=== PATIENT | male | born 1950 | race Caucasian/White ===

== ENCOUNTER → 2016-07-14 | Outpatient (CLI) | payer OTHER ==
[~2016-07-14] MED LIST: ATOR10TA82 PO; IBUP-1050 PO
[2016-07-14 12:53] LABS: BASO % 0.5 %; BASO ABS # 0.03 K/uL (0-0.2); COMPLETE YES; EOS % 4.7 %; HEMATOCRIT 44.7 % (42-52); IG% 0.2 %; LYMPH % 28.1 %; LYMPH ABS # 1.56 K/uL (1.2-3.4); MEAN CORPUSCULAR HEMOGLOBIN 30.1 pg (25-34); MEAN CORPUSCULAR HGB CONC 34.2 g/dl (32-36); MEAN PLATELET VOLUME 9.7 fL (7.4-10.4); MONO % 8.5 %; PLATELET COUNT 174 K/uL (130-400); RED BLOOD COUNT 5.08 M/uL (4.7-6.1); WHITE BLOOD COUNT 5.56 K/uL (4.8-10.8)
[2016-07-14 13:08] LABS: URINE APPEARANCE CLEAR (CLEAR); URINE BILIRUBIN NEG (NEG); URINE COLOR YELLOW; URINE NITRITE NEG (NEG); URINE SPECIFIC GRAVITY 1.021 (1.000-1.030); UROBILINOGEN NEG (NEG); ZZUR CULT IF INDIC CLEAN CATCH NO
[2016-07-14 13:10] LABS: MANUAL MICROSCOPIC REQUIRED? YES; REVIEW REQ? NO
[2016-07-14 13:46] LABS: URINE BACTERIA NEG (NEG); URINE RBC 0-4 /hpf (0-4); URINE WBC 0 /hpf (0-5)
[2016-07-14 13:48] LABS: ALT/SGPT 32 U/L (12-78); BLOOD UREA NITROGEN 18 mg/dl (7-18); BUN/CREATININE RATIO 21.2 (10-20); CALCIUM 8.8 mg/dl (8.5-10.1); CARBON DIOXIDE 27 mmol/L (21-32); CHLORIDE 107 mmol/L (98-107); CREATININE 0.83 mg/dl (0.60-1.40); GLUCOSE 107 mg/dl (70-99); POTASSIUM 4.2 mmol/L (3.5-5.1); SODIUM 141 mmol/L (136-145)
[2016-07-14 14:01] LABS: ALB/GLOB RATIO 1.2 (0.9-2); ALKALINE PHOSPHATASE 60 U/L (45-117); AST/SGOT 29 U/L (15-37)
== END | disposition home or self-care (01) ==
LOC: C.LABBFT 10:10
PROVIDERS: ATTEND Internal Medicine
DX: R10.30 Lower abdominal pain, unspecified (principal); Z12.5 Encounter for screening for malignant neoplasm of prostate

== ENCOUNTER → 2016-07-17 | Outpatient (CLI) | payer OTHER ==
[2016-07-17 13:13] LABS: ESTIMATED AVERAGE GLUCOSE 114 mg/dl; HA1C FLAG Normal (Normal)
== END | disposition home or self-care (01) ==
LOC: C.LABBFT 08:00
PROVIDERS: ATTEND Internal Medicine
DX: R73.01 Impaired fasting glucose (principal)

== ENCOUNTER → 2016-07-21 | Outpatient (CLI) | payer OTHER ==
[~2016-07-21] MED LIST changes: +OPTIRAY 320 IV PRN
--- NOTE | 2016-07-21 16:10 | DIAGNOSTIC IMAGING REPORT ---
CT OF THE ABDOMEN AND PELVIS WITH CONTRAST CLINICAL HISTORY: Left groin pain post hernia repair. COMPARISON STUDY: Abdominal ultrasound June 19, [address] of the abdomen and pelvis July 18 2015. TECHNIQUE: Following IV administration of 118 mL of Optiray-320, axial images of the abdomen and pelvis were obtained from the lung bases to the proximal femurs. Images were reviewed in the axial, sagittal, and coronal planes. IV contrast was administered without complication. Oral contrast was administered. CT DOSE: 335.00 mGy.cm FINDINGS: A 3 mm left lower lobe nodule shown image [id number] is unchanged since prior exam. This is likely benign. No pneumatosis, free air or portal venous gas is present. A 2.2 cm segment 7 hepatic lesion is unchanged since prior exam. This has probable nodular peripheral enhancement and suggests a hemangioma. An 8 mm hypodense segment 8/4 A lesion is too small to characterize but is likely benign. There is no evidence for a bowel obstruction and the spleen, adrenal glands, kidneys and pancreas are normal. There is no hydronephrosis. There is a lipoma within the third portion of the duodenum. No abdominal or pelvic lymphadenopathy is present. There is no ascites. There is no evidence for a recurrent left inguinal hernia. No mass or fluid collection is shown within the left groin. No suspicious osseous lesion is identified. Mild mesenteric infiltration is unchanged. IMPRESSION: 1. No CT findings to explain left groin pain. No evidence of recurrent left inguinal hernia. 2. No acute process within the abdomen or pelvis. 3. No change in a suspected 2.2 cm right hepatic lobe hemangioma. Electronically signed by: Chaz Mejias M.D. 07/21/2016 4:07 PM Dictated Date/Time: 07/21/2016 3:45 PM
== END | disposition home or self-care (01) ==
LOC: C.CTS 13:09
PROVIDERS: ATTEND Internal Medicine
DX: R10.30 Lower abdominal pain, unspecified (principal)

== ENCOUNTER → 2017-07-15 | Outpatient (CLI) | payer OTHER ==
[~2017-07-15] MED LIST changes: -OPTIRAY 320 IV PRN
[2017-07-15 12:44] LABS: BASO % 0.3 %; BASO ABS # 0.02 K/uL (0-0.2); EOS % 3.9 %; EOS ABS # 0.26 K/uL (0-0.5); HEMOGLOBIN 15.7 g/dL (14.0-18.0); IG# 0.01 K/uL (0.00-0.02); LYMPH % 21.4 %; LYMPH ABS # 1.43 K/uL (1.2-3.4); MEAN CELL VOLUME 89.5 fL (80-100); MEAN CORPUSCULAR HEMOGLOBIN 30.5 pg (25-34); MEAN CORPUSCULAR HGB CONC 34.1 g/dl (32-36); MEAN PLATELET VOLUME 9.8 fL (7.4-10.4); MONO % 7.6 %; MONO ABS # 0.51 K/uL (0.11-0.59); NEUT % 66.7 %; NEUT ABS # 4.46 K/uL (1.4-6.5); PLATELET COUNT 171 K/uL (130-400); RED CELL DISTRIBUTION WIDTH CV 13.5 % (11.5-14.5); RED CELL DISTRIBUTION WIDTH SD 44.5 fL (36.4-46.3); WHITE BLOOD COUNT 6.69 K/uL (4.8-10.8)
[2017-07-15 13:09] LABS: HEMOGLOBIN A1C 5.6 % (4.5-5.6)
[2017-07-15 13:16] LABS: ALT/SGPT 31 U/L (12-78); AST/SGOT 34 U/L (15-37); BLOOD UREA NITROGEN 17 mg/dl (7-18); CALCIUM 8.7 mg/dl (8.5-10.1); CARBON DIOXIDE 27 mmol/L (21-32); CREATININE 0.89 mg/dl (0.60-1.40); GLUCOSE 107 mg/dl (70-99); SODIUM 137 mmol/L (136-145)
[2017-07-15 13:22] LABS: ALKALINE PHOSPHATASE 59 U/L (45-117); CHOLESTEROL 131 mg/dl (0-200); LDL CHOLESTEROL CALCULATED 84 mg/dl; TOTAL PROTEIN 7.4 gm/dl (6.4-8.2)
== END | disposition home or self-care (01) ==
LOC: C.LABBFT 08:19
PROVIDERS: ATTEND Internal Medicine
DX: R73.01 Impaired fasting glucose (principal); Z12.5 Encounter for screening for malignant neoplasm of prostate; E78.00 Pure hypercholesterolemia, unspecified

== ENCOUNTER → 2017-11-15 | Outpatient (CLI) | payer OTHER ==
--- NOTE | 2017-11-15 13:37 | DIAGNOSTIC IMAGING REPORT ---
ABDOMEN FOR HERNIA CLINICAL HISTORY: INGUINAL HERNIA hernia TECHNIQUE: Ultrasound pre and post Valsalva COMPARISON STUDY: 06/19/2015 FINDINGS: A right inguinal hernia is confirmed. This is reducible. No definite bowel containment. IMPRESSION: Reducible right inguinal hernia. The above report was generated using voice recognition software. It may contain grammatical, syntax or spelling errors. Electronically signed by: Ramón Santos M.D. 11/15/2017 1:36 PM Dictated Date/Time: 11/15/2017 1:35 PM
== END | disposition home or self-care (01) ==
LOC: C.ULTR 12:26
PROVIDERS: ATTEND Physician Assistant Medical
DX: K40.90 Unilateral inguinal hernia, without obstruction or gangrene, not specified as recurrent (principal)

== ENCOUNTER → 2017-11-29 | Day surgery (SDC) | payer OTHER, MEDICARE ==
[2017-11-22 15:01] VITALS: BMI 24.0
--- NOTE | 2017-11-24 08:26 | PAT Medication Instructions ---
Service Date Nov 24, 2017. Current Home Medication List Atorvastatin (Lipitor), 1 TAB PO HS Ibuprofen (Advil), 400 MG PO BID PRN for PRN Medication Instructions For Your Scheduled Surgery -Instructions per surgeon: Ibuprofen (Advil), 400 MG PO BID PRN for PRN - Take the following medications as scheduled the night before surgery: Atorvastatin (Lipitor), 1 TAB PO HS If you have any questions please call us at [phone] or [phone] or [phone]
[2017-11-24 08:38] VITALS: BMI 24.0
[2017-11-24 10:03] LABS: BASO % 0.4 %; BASO ABS # 0.02 K/uL (0-0.2); EOS % 3.7 %; EOS ABS # 0.19 K/uL (0-0.5); HEMATOCRIT 46.5 % (42-52); HEMOGLOBIN 15.6 g/dL (14.0-18.0); IG# 0.01 K/uL (0.00-0.02); LYMPH % 29.1 %; LYMPH ABS # 1.51 K/uL (1.2-3.4); MEAN CELL VOLUME 90.5 fL (80-100); MEAN CORPUSCULAR HEMOGLOBIN 30.4 pg (25-34); MEAN CORPUSCULAR HGB CONC 33.5 g/dl (32-36); MEAN PLATELET VOLUME 9.6 fL (7.4-10.4); MONO ABS # 0.52 K/uL (0.11-0.59); NEUT % 56.6 %; NEUT ABS # 2.94 K/uL (1.4-6.5); PLATELET COUNT 178 K/uL (130-400); RED CELL DISTRIBUTION WIDTH CV 13.6 % (11.5-14.5); RED CELL DISTRIBUTION WIDTH SD 45.1 fL (36.4-46.3); WHITE BLOOD COUNT 5.19 K/uL (4.8-10.8)
[2017-11-24 10:16] LABS: CALCIUM 9.2 mg/dl (8.5-10.1); CREATININE 0.84 mg/dl (0.60-1.40); POTASSIUM 4.7 mmol/L (3.5-5.1)
[~2017-11-29] VITALS: Ht 172.7 cm; Wt 73.4 kg
[~2017-11-29] MED LIST changes: +ATROPINE SULFATE 0.1 MG/ML 5ML SYR IV PRN; +BUPIVACAINE 0.5 % 5 MG/1 ML PF 10ML VIAL ONE; +CEFAZOLIN 2000MG IV PUSH 15 ML IV SCH; +CEFAZOLIN SOD 1 GM VIAL ONE; +CEPH500C2 PO; +DEXAMETHASONE SOD INJ 4 MG/ML VIAL ONE; +EpHEDrine SULFATE 50MG/5ML SYR ONE; +EpHEDrine SULFATE INJ 50 MG/ML AMP IV PRN; +FENTANYL CITRATE INJ 50 MCG/1 ML 2 ML VIAL ONE; +FLUMAZENIL 0.1 MG/1 ML 10 ML VIAL IV PRN; +GLYCOPYRROLATE INJ 0.2 MG/ML VIAL ONE; +HYDR-5688 PO; +HYDROCODONE/ACETAMIN 5/325MG TAB PO PRN; +HYDROmorphone INJ 0.5 MG/0.5 ML SYR ONE; +HYDROmorphone INJ 1 MG/ML SYR IV PRN; +HydrALAZINE HCL 20 MG/ML VIAL ONE; +LABETALOL HCL IV 5 MG/ML 20ML IV PRN; +LACTATED RINGER'S 1000ML 1,000 ML IV SCH; +LARYING-O-JET KIT (LTA) ONE; +LIDOCAINE HCL 2% 2 ML VIAL (20MG/ML) ONE; +MIDAZOLAM HCL 1 MG/ML 2ML VIAL ONE; +NALOXONE HCL 0.4 MG/1 ML VIAL/CARP IV PRN; +NEOSTIGMINE METHYLSULFATE 5 MG/5 ML SYR ONE; +ONDANSETRON INJ 2 MG/ML 2 ML VIAL IV PRN; +ONDANSETRON INJ 2 MG/ML 2 ML VIAL ONE; +PROMETHAZINE HCL INJ 12.5 MG in SODIUM CHLORIDE 0.9% 50ML 50 ML IV PRN; +PROPOFOL IV EMULSION 10 MG/ML 20 ML VIAL ONE; +ROCURONIUM BROMIDE 10 MG/ML 5 ML VIAL ONE
[2017-11-29 05:52] VITALS: BP 145/72; PULSE 63; TEMP 37; O2SAT 97; Ht 172.7 cm; Wt 73.4 kg
--- NOTE | 2017-11-29 06:51 | History & Physical Bridge Note ---
H&P Re-Evaluation Bridge Note: I have examined the patient, reviewed the History & Physical and in the interval since the performance of the History & Physical I have noted the following changes of clinical significance: No changes noted
--- NOTE | 2017-11-29 07:04 | Discharge Instructions ---
Discharge Instructions Date of Service Nov 29, 2017. Visit Reason for Visit: Right Inguinal Hernia Discharge Discharge Diagnosis / Problem: Rt inguinal hernia Discharge Goals Goal(s): Decrease discomfort, Improve function, Improve disease control Activity Recommendations Activity Limitations: as noted below Lifting Limitations: no more than 25 pounds Exercise/Sports Limitations: until after follow-up appointment May Resume Sexual Activity: when tolerated Shower/Bathe: tomorrow Driving or Machine Use: resume 3 days after discharge Anesthesia . Post Anesthesia Instructions: If you have had General Anesthesia or IV Sedation: * Do not drive today. * Resume driving when surgeon permits. * Do not make important decisions or sign legal documents today. * Call surgeon for: 1. Temperature elevations greater than 101 degrees F. 2. Uncontrollable pain. 3. Excessive bleeding. 4. Persistent nausea and vomiting. 5. Medication intolerance (nausea, vomiting or rash). * For nausea and vomiting use only clear liquids such as: tea, soda, bouillon until nausea subsides, then gradually increase diet as tolerated. * If you have any concerns or questions, call your surgeon's office. If physician is unavailable and it is an emergency, call 911 or go to the nearest emergency room. . Instructions / Follow-Up Instructions / Follow-Up SPECIAL CARE INSTRUCTIONS: * Cover incisions and change daily for comfort/drainage. may leave uncovered with dermabond * May use ibuprofen for pain as tolerated. * Expect some swelling and bruising. Call your doctor if: * Temperature above 101 degrees * Pain not relieved by pain medicine ordered * There is increased drainage or redness from any incision * You have any unanswered questions or concerns [phone]. FOLLOW UP VISIT: If not already scheduled, please call the office for a follow-up visit. for 2 weeks- check up, no sutures to remove OFFICE PHONE NUMBER: Dr. Mooney Office Diet Recommendations Recommended Home Diet: resume previous diet Pending Studies Studies pending at discharge: no Medical Emergencies . Who to Call and When: Medical Emergencies: If at any time you feel your situation is an emergency, please call 911 immediately. . Non-Emergent Contact Non-Emergency issues call your: Primary Care Provider, Surgeon . . "Provider Documentation" section prepared by Leander Mooney. .
--- NOTE | 2017-11-29 08:05 | [facility] Operative Report ---
Operative Report Operative Date Nov 29, 2017. Pre-Operative Diagnosis Right Inguinal Hernia Post-Operative Diagnosis Same as preop, umbilical hernia Procedure(s) Performed Right Laparoscopic Inguinal Hernia Repair with Mesh open umbilical hernia repair Surgeon Dr. Mooney Garment Tag Stringer Surgeon(s) Omar Olson PA-C Estimated Blood Loss 10 ml Findings moderate indirect sac, moderate lipoma, also direct lipoma umbilical hernia Specimens None per Surgeon Anesthesia Type General Complication(s) none Disposition Recovery Room / PACU I attest to the content of the Intraoperative Record and any orders documented therein. Any exceptions are noted below.
--- NOTE | 2017-11-29 08:27 | OPERATIVE REPORT ---
DATE OF OPERATION: 11/29/2017 NAME OF OPERATION: Open umbilical hernia repair with laparoscopic right inguinal hernia repair. PREOPERATIVE DIAGNOSIS: Right inguinal hernia. POSTOPERATIVE DIAGNOSIS: Right inguinal hernia with umbilical hernia. STAFF SURGEON: Leander Mooney MD. INSURANCE UNDERWRITING ASSISTANT: Omar Olson PA-C ANESTHESIA: General. FINDINGS: Patient had a 1 cm umbilical hernia. He had a moderate indirect right inguinal hernia, a moderate lipoma of the sac, and also had a moderate direct lipoma. DESCRIPTION OF PROCEDURE: Patient was brought in the operating room and placed on the operating table in supine position. His abdomen was prepped and draped in the usual fashion. Pneumatic stockings and orogastric tube were placed. 0.5% plain Marcaine was used to anesthetize all incisions. Incision was made just above the umbilicus, carrying dissection down, identifying the hernia sac, opening the hernia, disconnecting the umbilicus from the fascia and then placing an 11 mm port in this site under visualization. Pneumoperitoneum was produced. Patient was placed in Trendelenburg position. Two 5 mm ports were placed, 1 right and left lateral under visualization. On inspection, the patient did have an indirect hernia. Dissection was carried out above this medial to lateral, dissecting the peritoneum away from the abdominal wall and then identifying a direct lipoma, which was reduced. The patient also had an indirect lipoma, which was reduced. The hernia sac was relatively large, it was dissected away from the surrounding tissue. At this point, I chose a large piece of 3D max mesh, placed it into the right lower quadrant covering the defect very well. It was secured from medial to lateral superior to the inguinal ligament using AbsorbaTack. The peritoneum was then brought up over the mesh and secured using AbsorbaTack. We did check for hemostasis, which was good. The pneumoperitoneum was reduced. All ports removed. The umbilical hernia closed using 0 Ethibond suture. Umbilicus reattached to the fascia using 2-0 chromic suture, and then, the skin at the umbilicus closed using 5-0 Prolene suture, the other sites with subcuticular 5-0 Monocryl and Dermabond. Patient was transferred to recovery room in stable condition. My intellectual property legal assistant helped with prepping, draping, hernia repair, and closure of the wounds. I attest to the content of the Intraoperative Record and any orders documented therein. Any exception s are noted below.
--- NOTE | 2017-11-29 08:56 | Anesthesiology Progress Note ---
Anesthesia Post Op Note Date & Time Nov 29, 2017 at 08:56 Vital Signs Pain Intensity: 3 Vital Signs Past 12 Hours Date Time Temp Pulse Resp B/P (MAP) Pulse Ox O2 Delivery O2 Flow Rate FiO2 11/29/17 08:50 36.4 56 13 138/64 96 Room Air 11/29/17 08:40 59 15 142/67 96 Room Air 11/29/17 08:30 61 13 155/69 99 Oxymask 10 11/29/17 08:20 55 19 160/75 100 Oxymask 10 11/29/17 08:14 36.6 65 23 173/88 98 Oxymask 10 11/29/17 05:52 37.0 63 18 145/72 (96) 97 Room Air Notes Mental Status: alert / awake / arousable, participated in evaluation Pt Amnestic to Procedure: Yes Nausea / Vomiting: adequately controlled Pain: adequately controlled Airway Patency, RR, SpO2: stable & adequate BP & HR: stable & adequate Hydration State: stable & adequate Anesthetic Complications: no major complications apparent
[2017-11-29 09:05] VITALS: BP 152/73; PULSE 55; TEMP 36.8; O2SAT 97
[2017-11-29 09:35] VITALS: BP 139/73; PULSE 71; O2SAT 95
[2017-11-29 10:05] VITALS: BP 163/76; PULSE 70; TEMP 36.6; O2SAT 95
== END | disposition home or self-care (01) ==
LOC: C.ACU 05:30
PROVIDERS: ATTEND Surgery
DX: K40.90 Unilateral inguinal hernia, without obstruction or gangrene, not specified as recurrent (principal); K42.9 Umbilical hernia without obstruction or gangrene; E78.00 Pure hypercholesterolemia, unspecified; Z79.899 Other long term (current) drug therapy

== ENCOUNTER 2017-12-03 11:22 | Emergency (ER) | payer OTHER, MEDICARE ==
[~2017-12-03] VITALS: Ht 172.7 cm; Wt 69.9 kg
[~2017-12-03 11:22] MED LIST changes: -ATROPINE SULFATE 0.1 MG/ML 5ML SYR IV PRN; -BUPIVACAINE 0.5 % 5 MG/1 ML PF 10ML VIAL ONE; -CEFAZOLIN 2000MG IV PUSH 15 ML IV SCH; -CEFAZOLIN SOD 1 GM VIAL ONE; -DEXAMETHASONE SOD INJ 4 MG/ML VIAL ONE; -EpHEDrine SULFATE 50MG/5ML SYR ONE; -EpHEDrine SULFATE INJ 50 MG/ML AMP IV PRN; -FENTANYL CITRATE INJ 50 MCG/1 ML 2 ML VIAL ONE; -FLUMAZENIL 0.1 MG/1 ML 10 ML VIAL IV PRN; -GLYCOPYRROLATE INJ 0.2 MG/ML VIAL ONE; -HYDROCODONE/ACETAMIN 5/325MG TAB PO PRN; -HYDROmorphone INJ 0.5 MG/0.5 ML SYR ONE; -HYDROmorphone INJ 1 MG/ML SYR IV PRN; -HydrALAZINE HCL 20 MG/ML VIAL ONE; -LABETALOL HCL IV 5 MG/ML 20ML IV PRN; -LACTATED RINGER'S 1000ML 1,000 ML IV SCH; -LARYING-O-JET KIT (LTA) ONE; -LIDOCAINE HCL 2% 2 ML VIAL (20MG/ML) ONE; -MIDAZOLAM HCL 1 MG/ML 2ML VIAL ONE; -NALOXONE HCL 0.4 MG/1 ML VIAL/CARP IV PRN; -NEOSTIGMINE METHYLSULFATE 5 MG/5 ML SYR ONE; -ONDANSETRON INJ 2 MG/ML 2 ML VIAL IV PRN; -ONDANSETRON INJ 2 MG/ML 2 ML VIAL ONE; -PROMETHAZINE HCL INJ 12.5 MG in SODIUM CHLORIDE 0.9% 50ML 50 ML IV PRN; -PROPOFOL IV EMULSION 10 MG/ML 20 ML VIAL ONE; -ROCURONIUM BROMIDE 10 MG/ML 5 ML VIAL ONE
[2017-12-03 11:25] VITALS: TEMP 37.1; Ht 172.7 cm; Wt 69.9 kg
[2017-12-03] MEDS ORDERED: ONDANSETRON INJ 2 MG/ML 2 ML VIAL IV STA (12:39)
[2017-12-03] MEDS ORDERED: SODIUM CHLORIDE 0.9% 1000ML 1,000 ML IV STA ×2 (12:39→13:56)
--- NOTE | 2017-12-03 13:09 | DIAGNOSTIC IMAGING REPORT ---
CHEST ONE VIEW PORTABLE CLINICAL HISTORY: 67 years-old Male presenting with EVALUATE ALTERED MENTAL STATUS/WEAKNESS. TECHNIQUE: Portable upright AP view of the chest was obtained. COMPARISON: 07/05/2013. FINDINGS: Cardiomediastinal silhouette normal. Lungs appear hyperinflated. No focal opacity. No large effusion or pneumothorax. Osseous structures normal. Upper abdomen normal. IMPRESSION: 1. Findings suggest emphysema. No focal infiltrate to suggest pneumonia. Electronically signed by: Leroy Rice M.D. 12/03/2017 1:08 PM Dictated Date/Time: 12/03/2017 1:06 PM
[2017-12-03 13:13] LABS: BASO % 0.2 %; BASO ABS # 0.02 K/uL (0-0.2); EOS % 1.7 %; EOS ABS # 0.16 K/uL (0-0.5); HEMATOCRIT 47.8 % (42-52); HEMOGLOBIN 16.5 g/dL (14.0-18.0); IG# 0.01 K/uL (0.00-0.02); LYMPH % 15.1 %; MEAN CELL VOLUME 89.2 fL (80-100); MEAN CORPUSCULAR HEMOGLOBIN 30.8 pg (25-34); MEAN CORPUSCULAR HGB CONC 34.5 g/dl (32-36); MEAN PLATELET VOLUME 9.6 fL (7.4-10.4); MONO % 7.5 %; MONO ABS # 0.69 K/uL (0.11-0.59); NEUT % 75.4 %; NEUT ABS # 6.98 K/uL (1.4-6.5); PLATELET COUNT 171 K/uL (130-400); RED CELL DISTRIBUTION WIDTH CV 13.4 % (11.5-14.5); RED CELL DISTRIBUTION WIDTH SD 43.8 fL (36.4-46.3); WHITE BLOOD COUNT 9.26 K/uL (4.8-10.8)
[2017-12-03 13:31] VITALS: O2SAT 94
[2017-12-03 13:40] LABS: ALBUMIN 4.1 gm/dl (3.4-5.0); ALKALINE PHOSPHATASE 64 U/L (45-117); ALT/SGPT 27 U/L (12-78); AST/SGOT 23 U/L (15-37); BLOOD UREA NITROGEN 21 mg/dl (7-18); CALCIUM 9.6 mg/dl (8.5-10.1); CARBON DIOXIDE 24 mmol/L (21-32); GLUCOSE 113 mg/dl (70-99); POTASSIUM 3.7 mmol/L (3.5-5.1); SODIUM 136 mmol/L (136-145); TOTAL PROTEIN 8.4 gm/dl (6.4-8.2)
[2017-12-03 14:52] VITALS: PULSE 61
[2017-12-03 16:03] VITALS: BP 135/78
--- NOTE | 2017-12-03 19:10 | EMERGENCY ROOM VISIT NOTE ---
History Report prepared by Linda: Raudel Guy Under the Supervision of: Dr. Mehdi Mcgee M.D. First contact with patient: 12:27 Chief Complaint: WEAKNESS Stated Complaint: TIRED,WEAK ARMS AND LEGS, SLIGHT DIZZY,EAR PLUGGED Nursing Triage Summary: patient reports general illness symptoms after hernia repair wednesday, states "don't know whats going on, my arms and legs feel fuzzy, my right ear is clogged, I just feel off." History of Present Illness The patient is a 67 year old male who presents to the Emergency Room with complaints of constant fatigue and weakness in his arms and legs beginning after an inguinal and umbilical hernia repair 4 days ago. The patient reports that the surgery was done by Dr. Mooney, and that he was not hospitalized. He states that the weakness is general and not isolated to one side. He reports that he is also experiencing mild chest pain when lying flat on his back, right ear drainage, and a "spacey" feeling with intermittent flushing and warmth. The patient denies fevers, cough, urinary symptoms, diarrhea, or nausea, although he notes he vomited once following his surgery. He states that he has been on antibiotics since his surgery. He states he took his antibiotic this morning and called Dr. Mooney's office, who stated that he can stop taking the antibiotics if he feels they are causing him problems. They instructed him to report to the ER. The patient states that he has not had any issues with his hernia since the surgery. He states that he is drinking plenty of fluids. He notes that he had a slight headache earlier this week that is now resolved. Source of History: patient Onset: 4 days ago after hernia repair Position: arm (bilateral), leg (bilateral) Quality: other (fatigue and weakness) Timing: constant Associated Symptoms: + chest pain (when lying flat), No fevers, No cough, No nausea, No diarrhea, No urinary symptoms Note: "spacey" feeling, intermittent flushing and warmth Review of Systems See HPI for pertinent positives & negatives. A total of 10 systems reviewed and were otherwise negative. Past Medical & Surgical Medical Problems: (1) Dyslipidemia Surgical Problems: (1) H/O inguinal hernia repair (2) History of repair of left rotator cuff (3) History of repair of right rotator cuff (4) S/P repair of hydrocele Family History non-contributory Social History Smoking Status: Never Smoker Marital Status: Occupation Status: retired Current/Historical Medications Scheduled Atorvastatin (Lipitor), 1 TAB PO HS Cephalexin Monohydrate (Keflex), 500 MG PO TID Allergies Coded Allergies: No Known Allergies (Unverified , 12/03/17) Physical Exam Vital Signs Date Time Temp Pulse Resp B/P (MAP) Pulse Ox O2 Delivery O2 Flow Rate FiO2 12/03/17 16:03 135/78 12/03/17 14:52 61 11 12/03/17 14:22 60 14 12/03/17 13:40 82 12/03/17 13:34 134/81 12/03/17 13:32 68 153/81 71 139/84 96 134/81 12/03/17 13:32 139/84 12/03/17 13:31 68 12 153/81 94 Room Air 12/03/17 11:25 37.1 99 20 155/101 97 Room Air Physical Exam GENERAL: Patient is in no acute distress. HEENT: No acute trauma, normocephalic atraumatic, mucous membranes moist, no nasal congestion, no scleral icterus. NECK: No stridor, no adenopathy, no meningismus, trachea is midline. LUNGS: Clear to auscultation bilaterally, no wheeze, no rhonchi, breath sounds equal. HEART: Without murmurs gallops or rubs, regular rate and rhythm. ABDOMEN: Soft, nontender, bowel sounds positive, no hernias, no peritonitis. Surgical incisions without erythema, warmth or drainage. EXTREMITIES: No cyanosis or edema, full range of motion of all the joints without pain or difficulty, no signs for acute trauma. NEUROLOGIC: Oriented x 3, no acute motor or sensory deficits, no focal weakness. No pronator drift or cerebellar dysfunction. No speech slur. SKIN: No rash, no jaundice, no diaphoresis. Medical Decision & Procedures ER Provider Diagnostic Interpretation: Radiology results as stated below per my review and radiologist interpretation: CHEST ONE VIEW PORTABLE CLINICAL HISTORY: 67 years-old Male presenting with EVALUATE ALTERED MENTAL STATUS/WEAKNESS. TECHNIQUE: Portable upright AP view of the chest was obtained. COMPARISON: 07/05/2013. FINDINGS: Cardiomediastinal silhouette normal. Lungs appear hyperinflated. No focal opacity. No large effusion or pneumothorax. Osseous structures normal. Upper abdomen normal. IMPRESSION: 1. Findings suggest emphysema. No focal infiltrate to suggest pneumonia. Electronically signed by: Leroy Rice M.D. 12/03/2017 1:08 PM Dictated Date/Time: 12/03/2017 1:06 PM Laboratory Results 12/03/17 12:55 Red Blood Count 5.36, Mean Corpuscular Volume 89.2, Mean Corpuscular Hemoglobin 30.8, Mean Corpuscular Hemoglobin Concent 34.5, Mean Platelet Volume 9.6, Neutrophils (%) (Auto) 75.4, Lymphocytes (%) (Auto) 15.1, Monocytes (%) (Auto) 7.5, Eosinophils (%) (Auto) 1.7, Basophils (%) (Auto) 0.2, Neutrophils # (Auto) 6.98, Lymphocytes # (Auto) 1.40, Monocytes # (Auto) 0.69, Eosinophils # (Auto) 0.16, Basophils # (Auto) 0.02 12/03/17 12:55 Test 12/03/17 12:55 12/03/17 13:45 White Blood Count 9.26 K/uL (4.8-10.8) Red Blood Count 5.36 M/uL (4.7-6.1) Hemoglobin 16.5 g/dL (14.0-18.0) Hematocrit 47.8 % (42-52) Mean Corpuscular Volume 89.2 fL (80-100) Mean Corpuscular Hemoglobin 30.8 pg (25-34) Mean Corpuscular Hemoglobin Concent 34.5 g/dl (32-36) Platelet Count 171 K/uL (130-400) Mean Platelet Volume 9.6 fL (7.4-10.4) Neutrophils (%) (Auto) 75.4 % Lymphocytes (%) (Auto) 15.1 % Monocytes (%) (Auto) 7.5 % Eosinophils (%) (Auto) 1.7 % Basophils (%) (Auto) 0.2 % Neutrophils # (Auto) 6.98 K/uL (1.4-6.5) Lymphocytes # (Auto) 1.40 K/uL (1.2-3.4) Monocytes # (Auto) 0.69 K/uL (0.11-0.59) Eosinophils # (Auto) 0.16 K/uL (0-0.5) Basophils # (Auto) 0.02 K/uL (0-0.2) RDW Standard Deviation 43.8 fL (36.4-46.3) RDW Coefficient of Variation 13.4 % (11.5-14.5) Immature Granulocyte % (Auto) 0.1 % Immature Granulocyte # (Auto) 0.01 K/uL (0.00-0.02) Anion Gap 11.0 mmol/L (3-11) Est Creatinine Clear Calc Drug Dose 89.0 ml/min Estimated GFR () 108.7 Estimated GFR (Non- 93.7 BUN/Creatinine Ratio 26.0 (10-20) Calcium Level 9.6 mg/dl (8.5-10.1) Magnesium Level 2.1 mg/dl (1.8-2.4) Total Bilirubin 0.8 mg/dl (0.2-1) Aspartate Amino Transf (AST/SGOT) 23 U/L (15-37) Alanine Aminotransferase (ALT/SGPT) 27 U/L (12-78) Alkaline Phosphatase 64 U/L (45-117) Total Creatine Kinase 123 U/L (39-308) Troponin I < 0.015 ng/ml (0-0.045) Total Protein 8.4 gm/dl (6.4-8.2) Albumin 4.1 gm/dl (3.4-5.0) Globulin 4.3 gm/dl (2.5-4.0) Albumin/Globulin Ratio 1.0 (0.9-2) Thyroid Stimulating Hormone (TSH) 1.340 uIu/ml (0.300-4.500) Urine Color YELLOW Urine Appearance CLEAR (CLEAR) Urine pH 5.0 (4.5-7.5) Urine Specific [place] 1.017 (1.000-1.030) Urine Protein NEG (NEG) Urine Glucose (UA) NEG (NEG) Urine Ketones 1+ (NEG) Urine Occult Blood TRACE (NEG) Urine Nitrite NEG (NEG) Urine Bilirubin NEG (NEG) Urine Urobilinogen NEG (NEG) Urine Leukocyte Esterase NEG (NEG) Urine WBC (Auto) 0 /hpf (0-5) Urine RBC (Auto) 0-4 /hpf (0-4) Urine Hyaline Casts (Auto) 0 /lpf (0-5) Urine Epithelial Cells (Auto) 0-5 /lpf (0-5) Urine Bacteria (Auto) NEG (NEG) Laboratory results reviewed by me. Medications Administered Medications (Trade) Dose Ordered Sig/Mauricio Route Start Time Stop Time Status Last Admin Dose Admin Sodium Chloride 1,000 ml @ 999 mls/hr Q1H1M STAT IV 12/03/17 12:39 12/03/17 13:39 DC 12/03/17 13:40 999 MLS/HR Sodium Chloride 1,000 ml @ 999 mls/hr Q1H1M STAT IV 12/03/17 13:56 12/03/17 14:56 DC 12/03/17 14:11 999 MLS/HR ECG Per My Interpretation Indication: weakness Rate (beats per minute): 75 Rhythm: normal sinus Findings: other (Incomplete RBBB. No ST elevation. No PVCs.) ED Course 1233: The patient was evaluated in room C3. A complete history and physical exam was performed. 1239: Ordered Sodium Chloride 1000 ml @ 999 mls/hr IV, Zofran 4 mg IV 1336: Orthostatic vital signs are positive. 1356: Ordered Sodium Chloride 1000 ml @ 999 mls/hr IV 1535: Reevaluated the patient. Discussed results and discharge instructions: He verbalized understanding and agreement. The patient is ready for discharge. Medical Decision Differential diagnosis: dehydration, post-anesthesia reaction, anemia, electrolyte imbalance, SC, thyroid disorder, UTI, medication reaction There is no leukocytosis or concerning anemia. No significant electrolyte abnormality, kidney failure or hepatitis. The patient appears to be in a euthyroid state. Urinalysis does not show infection. EKG shows a normal sinus rhythm, no acute ischemia. Cardiac enzyme testing 1 is not consistent with acute cardiac injury. Chest film does not show pneumonia or CHF. Orthostatic vital signs were positive. On exam, the patient was not toxic or febrile. He had no focal neurologic deficits. The patient received IV Zofran and 2 L of IV saline, he feels improved. I think the patient's presentation is multifactorial. I do believe he was dehydrated. I think he is also suffering from some side effects from his recent anesthesia. His antibiotics also may be making him feel unwell. I do think he can be discharged. He will stop the antibiotics, he will stay hydrated. If worsening, he will return. Medication Reconcilliation Current Medication List: was personally reviewed by me Blood Pressure Screening Patient's blood pressure: Elevated blood pressure Blood pressure disposition: Elevated BP felt to be situational Impression Primary Impression: Weakness Additional Impressions: Dehydration Status post hernia repair Scribe Attestation The scribe's documentation has been prepared under my direction and personally reviewed by me in its entirety. I confirm that the note above accurately reflects all work, treatment, procedures, and medical decision making performed by me. Departure Information Dispostion Home / Self-Care Referrals Terrance Garcia M.D. (PCP) Forms HOME CARE DOCUMENTATION FORM, IMPORTANT VISIT INFORMATION Patient Instructions [facility] Additional Instructions stop the antibiotics stay well hydrated return for fever or if worsening see teo grace for a recheck in a few days Problem Qualifiers
== END 2017-12-03 16:25 | disposition home or self-care (01) ==
LOC: C.EDB 11:23 → C.EDC 16:25
DX: R53.1 Weakness (principal); E86.0 Dehydration; Z98.890 Other specified postprocedural states; E78.5 Hyperlipidemia, unspecified